=== PATIENT | female | born 1995 | race African-American/Black ===

== ENCOUNTER 2018-08-14 11:34 | Day surgery (SDC) | payer MEDICAID ==
[~2018-08-14] VITALS: Ht 172.7 cm; Wt 81.6 kg
[2018-08-14] MEDS ORDERED: LACTATED RINGERS 1,000 ML IV SCH (12:30)
[2018-08-14 12:50] LABS: BASOPHILS % 0.7 % (0.0-2.0); EOSINOPHILS % 1.6 % (0.0-5.0); HEMATOCRIT. 32.9 % (36.0-48.0); HEMOGLOBIN. 10.4 g/dL (12.0-16.0); LYMPHOCYTES % 40.2 % (20.0-50.0); MEAN CORPUSCULAR HEMOGLOBIN 18.5 pg (28.0-32.0); MEAN CORPUSCULAR VOLUME 58.5 fL (81.0-99.0); MONOCYTES % 6.8 % (2.0-8.0); NEUTROPHILS % 50.7 % (40.0-76.0); RED BLOOD CELL COUNT 5.63 mill/uL (4.2-5.4); RED CELL DISTRIBUTION WIDTH 16.8 % (11.6-14.6)
[2018-08-14 12:56] LABS: INR 1.1; PARTIAL THROMBOPLASTIN TIME 31.7 sec (23.4-31.0); PROTHROMBIN TIME 11.4 sec (9.6-11.0)
[2018-08-14 13:08] LABS: CLARITY URINE CLEAR (CLEAR); COLOR URINE YELLOW (YELLOW); KETONES URINE NEGATIVE (NEGATIVE); LEUKOCYTE ESTERASE URINE NEGATIVE (NEGATIVE); NITRITE URINE NEGATIVE (NEGATIVE); OCCULT BLOOD URINE NEGATIVE (NEGATIVE); PH URINE 6.5 (4.5-8.0); PROTEIN URINE NEGATIVE (NEGATIVE); SPECIFIC GRAVITY URINE 1.026 (1.005-1.030)
[2018-08-14 13:09] LABS: UCG SCREEN NEGATIVE
[2018-08-14 13:17] LABS: CHLORIDE 108 mEq/L (98-107)
[2018-08-14 13:55] LABS: MEAN PLATELET VOLUME 10.9 fl (7.4-10.4); PLATELET 109 x1000/uL (130-400); PLATELET ESTIMATE SLIGHTLY DECREASED
[2018-08-14] MEDS ORDERED: BACITRACIN 15GM TUBE TOP ONE (13:56)
[2018-08-14] MEDS ORDERED: BACITRACIN 50,000 UNITS/VIAL ONE (13:56)
[2018-08-14] MEDS ORDERED: BUPIVACAINE HCL/PF 0.25% (2.5MG/ML) 10ML ONE (13:56)
[2018-08-14] MEDS ORDERED: FENTANYL CITRATE/PF 50MCG/ML 2ML VIAL ONE (14:12)
[2018-08-14] MEDS ORDERED: MIDAZOLAM HCL 2 MG/2 ML VIAL ONE (14:12)
[2018-08-14] MEDS ORDERED: PROPOFOL 200MG/20ML VIAL IV ONE ×2 (14:12→15:42)
[2018-08-14] MEDS ORDERED: LIDOCAINE HCL/PF 1% 10 MG/ML 5ML VIAL ONE (14:56)
[2018-08-14] MEDS ORDERED: GLYCOPYRROLATE 0.2 MG/ML 2ML VIAL ONE (15:01)
[2018-08-14] MEDS ORDERED: CEFAZOLIN SODIUM 1000MG/VIAL ONE (15:02)
[2018-08-14] MEDS ORDERED: ONDANSETRON HCL 4MG/2ML INJ ONE (15:30)
[2018-08-14] MEDS ORDERED: EPHEDRINE SULFATE 50MG/ML VIAL ONE (16:37)
[2018-08-14] MEDS ORDERED: SKIN ADHESIVE 0.7 GM EA TOP ONE (17:06)
[2018-08-14] MEDS ORDERED: MORPHINE SULFATE 2 MG/ML CPJ (NOT FOR IM USE) IV PRN (18:00)
[2018-08-14] MEDS ORDERED: MORPHINE SULFATE 4 MG/ML CPJ (NOT FOR IM USE) IV PRN (18:00)
[2018-08-14] MEDS ORDERED: CEFAZOLIN 2,000 MG in DEXT 5% WATER 100 ML IV SCH (18:00)
[2018-08-14] MEDS ORDERED: ACETAMINOPHEN 325MG TABLET PO PRN (18:00)
[2018-08-14] MEDS ORDERED: ONDANSETRON HCL 4MG/2ML INJ IV PRN (18:00)
[2018-08-14] MEDS ORDERED: HYDROCODONE/ACETAMINOPHEN 5/325MG TABLET PO PRN ×2 (18:00)
[2018-08-14] MEDS ORDERED: METOCLOPRAMIDE HCL 10MG/2ML VIAL IV PRN (18:15)
[2018-08-14] MEDS ORDERED: LORAZEPAM 2MG/ML CPJ IV PRN (18:15)
[2018-08-14] MEDS ORDERED: MEPERIDINE HCL/PF 25MG/ML CPJ IV PRN (18:15)
[2018-08-14 18:56] VITALS: BP 103/60
== END 2018-08-14 19:40 | disposition home or self-care (01) ==
LOC: OR 11:34
PROVIDERS: ATTEND Orthopaedic Surgery
DX: S62.611A Displaced fracture of proximal phalanx of left index finger, initial encounter for closed fracture (principal); F17.200 Nicotine dependence, unspecified, uncomplicated; Z79.01 Long term (current) use of anticoagulants; X58.XXXA Exposure to other specified factors, initial encounter; Y93.89 Activity, other specified; Y92.89 Other specified places as the place of occurrence of the external cause; Y99.8 Other external cause status
CPT/HCPCS: 26735; 36415; 73140; 76000; 80048; 81003; 81025; 85025; 85610; 85730; C1713; G0168; J0690; J2175; J2250; J2270; J2405; J2704; J2765; J3010; J3490